=== PATIENT | female | born 1980 | race Caucasian/White ===

== ENCOUNTER 2017-07-01 08:22 | Day surgery (SDC) | payer MEDICAID ==
[2017-06-27 10:55] LABS: BASOPHIL % 0.4 % (0-2); PLATELET COUNT 312 x10^3mcL (130-400); RED CELL DISTRIBUTION WIDTH 12.1 % (11.5-14.5)
[2017-06-27 11:32] LABS: ALBUMIN 3.8 g/dL (3.4-5.0); ALKALINE PHOSPHATASE 94 U/L (46-116); ALT/SGPT 24 U/L (14-59); AST/SGOT 17 U/L (15-37); BILIRUBIN TOTAL 0.53 mg/dL (0.20-1.00); CALCIUM 8.7 mg/dL (8.5-10.1); CARBON DIOXIDE 27.4 mmol/L (21-32); CHLORIDE SERUM 105 mmol/L (98-107); CREATININE SERUM 0.9 mg/dL (0.6-1.0); GFR1 > 60 mL/min; GLUCOSE SERUM 149 mg/dL (74-106); POTASSIUM SERUM 3.8 mmol/L (3.5-5.1); SODIUM SERUM 142 mmol/L (136-145); TOTAL PROTEIN, SERUM 7.3 g/dL (6.4-8.2)
[~2017-07-01] VITALS: Ht 167.6 cm; Wt 94.3 kg
[2017-07-01 08:34] VITALS: BP 132/79
[2017-07-01 16:55] VITALS: BP 122/67
== END 2017-07-01 16:55 | disposition home or self-care (01) ==
LOC: DS 08:22 → OR 09:00 → NM 09:00 → RD 09:00 → MA 10:00 → OR 12:30 → DS 16:55
PROVIDERS: Surgery
PROC: 0HBT0ZZ Excision of Right Breast, Open Approach (ICD-10-PCS; principal; 2017-07-01 13:00)
DX: C50.211 Malignant neoplasm of upper-inner quadrant of right female breast (principal); E66.01 Morbid (severe) obesity due to excess calories; Z68.35 Body mass index [BMI] 35.0-35.9, adult; Z17.0 Estrogen receptor positive status [ER+]
CPT/HCPCS: 88329; 88344; 88361; J0690; J2001; J2250; J2270; J2405; J2704; J3010; J3490; J7120; Q9968